=== PATIENT | female | born 1990 | race Caucasian/White ===

== ENCOUNTER 2017-10-08 00:41 | Emergency (ER) | payer SELFPAY ==
[~2017-10-08] VITALS: Ht 162.6 cm; Wt 82.1 kg
[2017-10-08 00:46] VITALS: Ht 162.6 cm; Wt 82.1 kg
[2017-10-08 01:52] VITALS: BP 131/89
== END 2017-10-08 01:52 | disposition home or self-care (01) ==
LOC: ED 00:41
DX: H00.11 Chalazion right upper eyelid (principal)